=== PATIENT | male | born 1965 | race African-American/Black ===

== ENCOUNTER 2021-09-17 13:29 | Inpatient (IN) | payer OTHER ==
[2021-09-17 14:17] VITALS: BMI 29.5
[2021-09-17] MEDS ORDERED: NICOTINE 10 MG CARTRIDGE (INHALER) IH PRN (16:46)
[2021-09-17] MEDS ORDERED: MAG HYDROX/AL HYDROX/SIMETH 30 ML UNIT-DOSE CUP PO PRN (16:46)
[2021-09-17] MEDS ORDERED: MENTHOL/PHENOL 1 EACH UD MM PRN (16:46)
[2021-09-17] MEDS ORDERED: METHOCARBAMOL 500 MG TABLET PO PRN (16:46)
[2021-09-17] MEDS ORDERED: ONDANSETRON *ODT* 4 MG TABLET SL PRN (16:46)
[2021-09-17] MEDS ORDERED: diazePAM 5 MG TABLET PO PRN (16:46)
[2021-09-17] MEDS ORDERED: MAGNESIUM HYDROX 2400MG/30ML ORAL SUSPENSION 30 ML CUP PO PRN (16:46)
[2021-09-17] MEDS ORDERED: BISMUTH SUBSALICYLATE 524 MG/30 ML PO PRN (16:46)
[2021-09-17] MEDS ORDERED: IBUPROFEN 400 MG TABLET (FP) PO PRN (16:46)
[2021-09-17] MEDS ORDERED: diazePAM 5 MG TABLET PO ONE (16:46)
[2021-09-17] MEDS ORDERED: MAGNESIUM CITRATE 300 ML BOTTLE PO PRN (16:46)
[2021-09-17] MEDS ORDERED: ACETAMINOPHEN 325 MG TABLET (FP) PO PRN ×2 (16:46)
[2021-09-17] MEDS: hydrOXYzine PAMOATE 25 MG CAPSULE (FP) PO SCH ×2 (18:20→22:23)
[2021-09-17] MEDS: MELATONIN 5 MG TABLETS PO SCH (22:23)
[2021-09-17] MEDS: THIAMINE HCL 100 MG TABLET (FP) PO SCH (22:23)
[2021-09-17] MEDS: diazePAM 5 MG TABLET PO SCH (22:24)
[2021-09-18] MEDS: hydrOXYzine PAMOATE 25 MG CAPSULE (FP) PO SCH ×5 (05:43→22:05)
[2021-09-18] MEDS: diazePAM 5 MG TABLET PO SCH ×4 (05:43→22:04)
[2021-09-18] MEDS: PRENATAL VITAMINS W/ FOLIC ACID TABLET (FP) PO SCH (10:21)
[2021-09-18 12:17] LABS: HEMATOCRIT 40.4 % (35.4-49); HEMOGLOBIN 14.1 GM/dL (11.7-16.9); MCH 32.4 pg (25.7-33.7); MCHC 34.8 g/dl (32.0-35.9); MEAN CELL VOLUME 93.2 fl (80-96); MEAN PLT VOLUME 9.2 fl (7.5-11.1); PLATELET COUNT 217 10^3/uL (134-434); RBC 4.34 M/mm3 (4.00-5.60); RDW 15.6 % (11.9-15.9); WHITE BLOOD COUNT 5.6 K/mm3 (4.0-10.0)
[2021-09-18 12:29] LABS: ALBUMIN 2.9 g/dl (3.4-5.0); BLOOD UREA NITROGEN 17.2 mg/dL (7-18); CALCIUM 8.8 mg/dL (8.5-10.1)
[2021-09-18 12:34] LABS: BILIRUBIN,TOTAL 0.6 mg/dL (0.2-1); TOT PROT 6.5 g/dl (6.4-8.2)
[2021-09-18] MEDS: MELATONIN 5 MG TABLETS PO SCH (22:05)
[2021-09-18] MEDS: THIAMINE HCL 100 MG TABLET (FP) PO SCH (22:05)
[2021-09-19] MEDS: hydrOXYzine PAMOATE 25 MG CAPSULE (FP) PO SCH ×2 (05:33→12:22)
[2021-09-19] MEDS: diazePAM 5 MG TABLET PO SCH ×3 (05:33→22:23)
[2021-09-19] MEDS: hydrOXYzine PAMOATE 25 MG CAPSULE (FP) PO PRN (10:26)
[2021-09-19] MEDS: PRENATAL VITAMINS W/ FOLIC ACID TABLET (FP) PO SCH (10:26)
[2021-09-19] MEDS: THIAMINE HCL 100 MG TABLET (FP) PO SCH (22:21)
[2021-09-19] MEDS: MELATONIN 5 MG TABLETS PO SCH (22:21)
[2021-09-20] MEDS: diazePAM 5 MG TABLET PO SCH ×2 (06:59→17:47)
[2021-09-20] MEDS: PRENATAL VITAMINS W/ FOLIC ACID TABLET (FP) PO SCH (10:32)
[2021-09-20] MEDS: hydrOXYzine PAMOATE 25 MG CAPSULE (FP) PO PRN ×2 (17:49→22:28)
[2021-09-20] MEDS: THIAMINE HCL 100 MG TABLET (FP) PO SCH (22:25)
[2021-09-20] MEDS: MELATONIN 5 MG TABLETS PO SCH (22:25)
[2021-09-21] MEDS ORDERED: diazePAM 5 MG TABLET PO ONE (06:00)
[2021-09-21 07:44] VITALS: BP 134/70; PULSE 67; TEMP 96.9
[2021-09-21] MEDS ORDERED: PENICILLIN G BENZATHINE 2,400,000 UNIT/4 ML PFS IM ONE (08:30)
[2021-09-21] MEDS: PRENATAL VITAMINS W/ FOLIC ACID TABLET (FP) PO SCH (09:20)
== END 2021-09-21 09:24 | disposition home or self-care (01) | DRG 773 ==
LOC: YASAS 13:29 → Y3N 17:24
PROVIDERS: ADMIT Allergy & Immunology; ATTEND Allergy & Immunology
PROC: HZ2ZZZZ Detoxification Services for Substance Abuse Treatment (ICD-10-PCS; principal; 2021-09-17)
DX: F10.230 Alcohol dependence with withdrawal, uncomplicated (principal); F14.20 Cocaine dependence, uncomplicated; F11.10 Opioid abuse, uncomplicated; F17.210 Nicotine dependence, cigarettes, uncomplicated; F41.9 Anxiety disorder, unspecified; F32.A Depression, unspecified; R77.0 Abnormality of albumin; G47.00 Insomnia, unspecified; Z56.0 Unemployment, unspecified
CPT/HCPCS: 36415; 80053; 85027; 86593; 86780; C9803; U0003; U0005